=== PATIENT | male | born 1975 | race Caucasian/White ===

== ENCOUNTER 2018-11-20 23:51 | Emergency (ER) | payer OTHER ==
[~2018-11-20] VITALS: Ht 177.8 cm; Wt 90.7 kg
[~2018-11-20 23:51] MED LIST: HYDROCODON-ACE1 EAC7 PO; XANAX 0.5 MG0.5 MG PO
[2018-11-21 00:21] LABS: ABSOLUTE BASOPHILS 0.1 thou/uL (0.0-0.2); ABSOLUTE EOSINOPHILS 0.2 thou/uL (0.0-0.7); ABSOLUTE LYMPHOCYTES 6.2 thou/uL (0.8-5.3); ABSOLUTE MONOCYTES 1.1 thou/uL (0.0-1.2); ABSOLUTE NEUTROPHILS 8.1 thou/uL (1.6-8.1); BASOPHILS 0.7 %; EOSINOPHILS 1.3 %; HEMATOCRIT 45.2 % (42.0-52.0); HEMOGLOBIN 15.4 gm/dL (14.0-18.0); LYMPHOCYTES 39.2 %; MCHC 34.1 g/dL (28.0-37.0); MCV 90.9 fL (80.0-100.0); MONOCYTES 6.9 %; MPV 7.9 fl. (7.2-11.1); NUCLEATED RBCS 0 /100WBC; PLATELET COUNT* 311 thou/uL (150-400); POLYS 51.9 %; RBC 4.97 mil/uL (4.50-6.00); RDW-CV 13.7 % (10.5-14.5); WBC 15.7 thou/uL (4.0-11.0)
[2018-11-21 00:35] LABS: INR 1.1; PROTIME 10.8 Seconds (9.20-11.50)
[2018-11-21 00:40] LABS: ANION GAP 11 mmol/L (7-16); BUN 13 mg/dL (7-18); CALCIUM 8.9 mg/dL (8.5-10.1); CHLORIDE 99 mmol/L (98-107); CO2 27 mmol/L (21-32); CREATININE 1.3 mg/dL (0.6-1.3); GLUCOSE 189 mg/dL (70-99); POTASSIUM 3.3 mmol/L (3.5-5.1); SODIUM 137 mmol/L (136-145); TROPONIN-I LEVEL <0.06 ng/mL (<0.06)
[2018-11-21 00:41] LABS: ALBUMIN 3.8 g/dL (3.4-5.0); ALKALINE PHOSPHATASE 78 U/L (46-116); LIPASE 116 U/L (73-393); NT-PRO BRAIN NAT PEPTIDE 11 pg/mL (<300); SGOT 18 U/L (15-37); SGPT 27 U/L (30-65); TOTAL BILIRUBIN 0.3 mg/dL (<0.1-1.0); TOTAL PROTEIN 7.1 g/dL (6.4-8.2)
[2018-11-21] MEDS ORDERED: VISTARIL 25 MG25 M1 PO (00:53)
[2018-11-21 02:05] LABS: URINE BILIRUBIN NEGATIVE (Negative); URINE BLOOD NEGATIVE (Negative); URINE CLARITY CLEAR; URINE COLOR YELLOW; URINE GLUCOSE-RANDOM NEGATIVE (Negative); URINE KETONES NEGATIVE (Negative); URINE LEUKOCYTES-REFLEX TRACE (Negative); URINE NITRITE-REFLEX NEGATIVE (Negative); URINE PROTEIN NEGATIVE (Negative); URINE SPECIFIC GRAVITY 1.015 (1.005-1.030); URINE UROBILINOGEN 0.2 E.U./dl (0.2-1.0)
[2018-11-21 02:52] LABS: CRYSTALS None Seen /LPF (None Seen); FINE GRANULAR CASTS 0-3 Few /LPF (None Seen); HYALINE CASTS 0-3 Few /LPF (None Seen); MUCUS 4-6 Moderate strn/LPF (None Seen); SQUAMOUS 0-3 Few /LPF (0-3); URINE RBC 0-2 Rare /HPF (0-2); URINE WBC-REFLEX 6-15 Few /HPF (0-5)
[2018-11-21 03:26] VITALS: BP 136/86
--- NOTE | 2018-11-22 12:04 | EKG ---
[place] [address] ELECTROCARDIOGRAM REPORT Name: CHANOELMER ZUNIGA [id number] Admission: 11/20/18 Attend Phys: Discharge: 11/21/18 Date of : 73 Report #: [id number] THIS REPORT FOR: //name// [facility] ED Test Date: 2018-11-20 Test Time: 23:56:19 Pat Name: ELMER MADDEN Department: Room: Gender: M [employer] Operator: : 1975 Requested By: Leah Weinstein Order Number: [id number] MD: Jese Schrader Measurements Intervals [place] Rate: 118 P: 53 [place]: 172 QRS: 91 QRSD: 93 T: -32 QT: 320 QTc: 449 Interpretive Statements Sinus tachycardia Borderline right axis deviation Borderline T abnormalities, inferior leads No previous ECG available for comparison Electronically Signed On 11-22-2018 12:04:13 CDT by Jese Schrader [email or web address] <ELECTRONICALLY SIGNED> By: Jese Schrader MD, FACC 11/22/18 1204 [id number] Jese Schrader MD, FAC /EPI
== END 2018-11-21 03:23 | disposition still patient (30) ==
LOC: M.ERS 23:51
PROVIDERS: Nurse Practitioner
DX: R00.2 Palpitations (principal); F41.9 Anxiety disorder, unspecified; Z88.5 Allergy status to narcotic agent